=== PATIENT | female | born 1995 | race Caucasian/White ===

== ENCOUNTER 2016-05-28 20:11 | Emergency (ER) | payer SELFPAY ==
[2016-05-28 20:24] VITALS: BP 137/90
[2016-05-28] MEDS ORDERED: TORADOL IM ONE (20:24)
--- NOTE | 2016-05-28 20:26 | Emergency Department Report ---
Chief Complaint: Abdominal Pain Stated Complaint: UPPER ABD PAIN Time Seen by Provider: 05/28/16 20:23 - HPI History of Present Illness: 20-year-old female presents today with upper abdominal pain 30 minutes. Positive for history of similar symptoms but states it spontaneously resolves usually. Positive for nausea. Denies vomiting, chest pain, shortness of breath. - ROS Review of Systems: Per HPI - Exam Vital Signs: Vital Signs 05/28/16 20:20 Temperature 97.8 F Pulse Rate 108 H Respiratory 20 Rate Blood Pressure 137/90 O2 Sat by Pulse 100 Oximetry Physical Exam: General: 20-year-old female in severe distress. Well-developed, well-nourished. CV: Regular rate and rhythm. No murmurs rubs or gallops. Lungs: Clear to auscultation bilaterally. Abdomen: Positive for tenderness to palpation of right upper quadrant and epigastric region. No guarding or rebound tenderness. Normal bowel sounds. MSE screening note: Focused history and physical exam performed. Due to findings the following was ordered: ED Disposition for MSE Condition: Stable
--- NOTE | 2016-05-30 14:02 | ED Elopement Review ---
ED Pt Elopement review - Call Back decision Pt Call Back Decision: No action required
== END 2016-05-28 20:45 | disposition left against medical advice (07) ==
LOC: ED 20:11
DX: R10.10 Upper abdominal pain, unspecified (principal); R11.0 Nausea; Z53.21 Procedure and treatment not carried out due to patient leaving prior to being seen by health care provider
CPT/HCPCS: J1885